=== PATIENT | male | born 1980 | race Caucasian/White ===

== ENCOUNTER 2018-12-09 16:32 | Emergency (ER) | payer BC ==
[2018-12-09 16:47] VITALS: BP 140/80
--- NOTE | 2018-12-09 17:14 | UC ---
Respiratory Complaint HPI - HPI Summary HPI Summary: 38 y/o male with no PMH no medications, no recent illnesss/ abx use presents with 2 week h/o cough, mild nasal congestion, slight sore throat with coughing. cough non-productive. + dry coughing spells. worse at night. NO GI s/ s, no ear pain, ho fever. REports early last week body aches, chills, but has resolved since tu. - History of Current Complaint Chief Complaint: UCRespiratory Stated Complaint: COUGH Time Seen by Provider: 12/09/18 17:02 Hx Obtained From: Patient Timing: Constant Severity Currently: None Pain Intensity: 0 Pain Scale Used: 0-10 Numeric Character: Cough: Nonproductive Associated Signs And Symptoms: Negative: Fever, Chills, URI, Nasal Congestion - Allergies/Home Medications Allergies/Adverse Reactions: Allergies Allergy/AdvReac Type Severity Reaction Status Date / Time No Known Allergies Allergy Verified 12/09/18 16:47 Home Medications: Home Medications D-Methorphan/PE/Acetaminophen [[place] Plus Sinus-Cough] 1 each PO DAILY [History Confirmed 12/09/18] PMH/Surg Hx/FS Hx/Imm Hx Previously Healthy: Yes - Surgical History Surgical History: None - Social History Alcohol Use: Rare Substance Use Type: None Smoking Status (MU): Never Smoked Tobacco Review of Systems All Other Systems Reviewed And Are Negative: Yes Constitutional: Positive: Negative ENT: Positive: Sore Throat - mild with coughing Respiratory: Positive: Cough Is Patient Immunocompromised?: No Physical Exam Triage Information Reviewed: Yes Appearance: Well-Appearing, No Pain Distress, Well-Nourished Vital Signs: Initial Vital Signs Temp 99.4 F 12/09/18 16:41 Pulse 102 12/09/18 16:41 Resp 10 12/09/18 16:41 BP 140/80 12/09/18 16:41 Pulse Ox 99 12/09/18 16:41 Vital Signs Reviewed: Yes Eyes: Positive: Conjunctiva Clear ENT: Positive: Pharynx normal, TMs normal, Uvula midline. Negative: Nasal congestion, TM bulging, TM dull, TM red, Sinus tenderness Neck: Positive: Supple, Nontender, No Lymphadenopathy Respiratory: Positive: Chest non-tender, Lungs clear, Normal breath sounds, No respiratory distress, No accessory muscle use. Negative: Crackles, Rhonchi, Stridor, Wheezing Cardiovascular: Positive: RRR, No Murmur Abdomen Description: Positive: Nontender, No Organomegaly, Soft. Negative: CVA Tenderness (R), CVA Tenderness (L) Psychological Exam: Normal Skin Exam: Normal UC Diagnostic Evaluation - Laboratory O2 Sat by Pulse Oximetry: 99 Respiratory Course/Dx - Course Course Of Treatment: bronchitis, steroid treament, follow up with PCP if no resolution - Differential Dx/Diagnosis Differential Diagnosis/HQI/PQRI: Bronchitis, Sinusitis Provider Diagnosis: Acute bronchitis Discharge - Sign-Out/Discharge Documenting (check all that apply): Patient Departure All imaging exams completed and their final reports reviewed: No Studies - Discharge Plan Condition: Good Disposition: HOME Prescriptions: methylPREDNISolone [Medrol Dosepak 4 MG*] 1 yara PO .SEE YARA INSTRUCTION #1 yara Patient Education Materials: Acute Bronchitis (ED), Wheezing (ED) Forms: *Work Release Referrals: No Primary Care Phys,NOPCP [Primary Care Provider] - Additional Instructions: - Increase fluid intake - Humidifier at night - Over the counter cough medication as needed - Over the counter/ Antihistamines for congestion - Motrin/ ibuprofen as needed for headache/ body aches - work note given - STeroids to help decrease inflammation and cough - Billing Disposition and Condition Condition: GOOD Disposition: Home
== END 2018-12-09 17:21 | disposition home or self-care (01) ==
LOC: UCCORT 16:32
DX: J20.9 Acute bronchitis, unspecified (principal); R09.81 Nasal congestion
CPT/HCPCS: 99202; G0463